=== PATIENT | female | born 1965 | race Caucasian/White ===

== ENCOUNTER 2024-05-07 17:56 | Inpatient (IN) | payer MEDICARE ==
[~2024-05-07] VITALS: Ht 162.6 cm; Wt 52.2 kg
[2024-05-07 18:41] LABS: BASOPHILS % 0.2 % (0.0-1.0); EOSINOPHILS % 0.3 % (0.0-6.0); HEMATOCRIT 40.1 % (34.2-44.1); HEMOGLOBIN 12.3 g/dL (12.0-16.0); LYMPHOCYTES # (AUTO) 0.8 (1.0-3.2); LYMPHOCYTES % 7.1 % (18.0-39.1); MEAN CORPUSCULAR HGB CONC 30.7 g/dL (31-35); MEAN CORPUSCULAR VOLUME 91.3 fL (81-99); MONOCYTES # (AUTO) 0.3 (0.2-0.8); MONOCYTES % 2.8 % (4.4-11.3); NEUTROPHILS # (AUTO) 9.7 (2.1-6.9); NEUTROPHILS % 89.2 % (38.7-80.0); PLATELET COUNT 279 x10e3/uL (140-360); RED BLOOD COUNT 4.39 x10e6/uL (3.6-5.1); RED CELL DISTRIBUTION WIDTH 13.2 % (11.7-14.4); WHITE BLOOD COUNT 10.91 x10e3/uL (4.8-10.8)
[2024-05-07 19:01] LABS: ALBUMIN 3.6 g/dL (3.5-5.0); ALBUMIN/GLOBULIN RATIO 0.9 (0.8-2.0); ANION GAP 18.3 mmol/L (8-16); BILIRUBIN,TOTAL 0.6 mg/dL (0.2-1.2); CALCIUM 9.7 mg/dL (8.4-10.2); CREATININE, SERUM 0.99 mg/dL (0.57-1.11); POTASSIUM 4.3 mmol/L (3.5-5.1); TOTAL PROTEIN 7.5 g/dL (6.5-8.1)
[2024-05-07 19:02] LABS: INFLUENZAE A&B ANTIGEN (RAPID) NEGATIVE (NEGATIVE); RESPIRATORY SYNC. VIRUS NEGATIVE (NEGATIVE)
[2024-05-07 19:08] LABS: BILIRUBIN,URINE NEGATIVE (NEGATIVE); CLARITY,URINE CLOUDY (CLEAR); COLOR,URINE YELLOW (YELLOW); GLUCOSE, URINE NEGATIVE (NEGATIVE); KETONES,URINE NEGATIVE (NEGATIVE); LEUKOCYTE ESTERASE ,URINE LARGE (NEGATIVE); NITRITE,URINE NEGATIVE (NEGATIVE); PH,URINE 7.5 (5 - 7); PROTEIN,URINE DIPSTICK 1+ (NEGATIVE); URINE UROBILINOGEN 0.2 mg/dL (0.2 - 1)
[2024-05-07] MEDS: SODIUM CHLORIDE 0.9% 1000ML 1,000 ML IV ONE ×2 (19:13→20:36)
[2024-05-07] MEDS: ACETAMINOPHEN 1000 MG/100 ML IV STA (19:13)
[2024-05-07] MEDS ORDERED: IOPAMIDOL 370 MG/ML 100 ML INFUS..BTL INJ ONE (19:15)
[2024-05-07 19:19] LABS: BACTERIA,URINE MANY /HPF; RBC,URINE 0-5 /HPF (0-5)
[2024-05-07] MEDS ORDERED: ONDANSETRON HCL INJ 2MG/ML 2ML 2 MG/ML VIAL IV PRN (21:00)
[2024-05-07 21:10] VITALS: PULSE 133; RESP 25; O2SAT 95
[2024-05-07] MEDS ORDERED: MELATONIN 5 MG TABLET PO PRN (21:45)
[2024-05-07] MEDS ORDERED: ACETAMINOPHEN 325 MG TAB PO PRN (21:45)
[2024-05-07] MEDS ORDERED: ONDANSETRON HCL 4 MG ORAL DISINTEGRATING TAB PO PRN (21:45)
[2024-05-07 22:30] VITALS: TEMP 99.8
[2024-05-07] MEDS: MUPIROCIN 2% OINT 22 GM TUBE TOP SCH (23:28)
[2024-05-07] MEDS: SODIUM CHLORIDE 0.9% 1000ML 1,000 ML IV SCH (23:29)
[2024-05-08] VITALS (21 sets, daily range): BP systolic 67–112; BP diastolic 45–77; PULSE 90–114; RESP 17–28; TEMP 98.3–99; O2SAT 90–98
[2024-05-08] MEDS ORDERED: BACLOFEN10 MG PO (07:28)
[2024-05-08] MEDS ORDERED: OMEPRAZOLE40 MG PO (07:28)
[2024-05-08] MEDS ORDERED: METHENAMINE HIPP1 GM PO (07:28)
[2024-05-08] MEDS ORDERED: GLYCOPYRROLATE2 MG PO (07:28)
[2024-05-08] MEDS: FAMOTIDINE 20 MG TAB PO SCH (08:07)
[2024-05-08 08:19] LABS: BASOPHILS % 0.3 % (0.0-1.0); EOSINOPHILS # (AUTO) 0.1 (0.0-0.4); EOSINOPHILS % 0.5 % (0.0-6.0); HEMATOCRIT 33.1 % (34.2-44.1); HEMOGLOBIN 10.2 g/dL (12.0-16.0); LYMPHOCYTES # (AUTO) 1.8 (1.0-3.2); LYMPHOCYTES % 19.1 % (18.0-39.1); MEAN CORPUSCULAR HEMOGLOBIN 28.2 pg (28-32); MEAN CORPUSCULAR HGB CONC 30.8 g/dL (31-35); MEAN CORPUSCULAR VOLUME 91.4 fL (81-99); MONOCYTES # (AUTO) 0.5 (0.2-0.8); MONOCYTES % 5.5 % (4.4-11.3); NEUTROPHILS % 74.3 % (38.7-80.0); PLATELET COUNT 262 x10e3/uL (140-360); RED BLOOD COUNT 3.62 x10e6/uL (3.6-5.1); RED CELL DISTRIBUTION WIDTH 13.4 % (11.7-14.4)
[2024-05-08 08:44] LABS: ALBUMIN 2.7 g/dL (3.5-5.0); ALBUMIN/GLOBULIN RATIO 0.9 (0.8-2.0); ANION GAP 12.5 mmol/L (8-16); BILIRUBIN,TOTAL 0.5 mg/dL (0.2-1.2); CALCIUM 8.3 mg/dL (8.4-10.2); CREATININE, SERUM 0.85 mg/dL (0.57-1.11); POTASSIUM 3.5 mmol/L (3.5-5.1); TOTAL PROTEIN 5.7 g/dL (6.5-8.1)
[2024-05-08] MEDS: POLYETHYLENE GLYCOL 3350 17 GM PACK PO SCH (10:11)
[2024-05-08] MEDS: DEXTROSE 5%/0.45% SOD CHL 1,000 ML IV SCH (10:11)
[2024-05-08] MEDS: BENZONATATE 100 MG CAP PO PRN (17:23)
[2024-05-08] MEDS: ACETAMINOPHEN 1000 MG/100 ML IV PRN (19:40)
[2024-05-08] MEDS: GUAIFENESIN/DEXTROMETHORPHAN LIQD 5 ML UDC PO PRN (22:57)
[2024-05-09] VITALS (15 sets, daily range): BP systolic 85–119; BP diastolic 50–86; PULSE 63–106; RESP 18–26; TEMP 97.9–99.7; O2SAT 95–100
[2024-05-09 05:53] LABS: BASOPHILS % 0.3 % (0.0-1.0); EOSINOPHILS # (AUTO) 0.2 (0.0-0.4); EOSINOPHILS % 2.7 % (0.0-6.0); HEMATOCRIT 28.3 % (34.2-44.1); HEMOGLOBIN 8.2 g/dL (12.0-16.0); LYMPHOCYTES # (AUTO) 1.8 (1.0-3.2); LYMPHOCYTES % 27.6 % (18.0-39.1); MEAN CORPUSCULAR HEMOGLOBIN 28.1 pg (28-32); MEAN CORPUSCULAR VOLUME 96.9 fL (81-99); MONOCYTES # (AUTO) 0.6 (0.2-0.8); MONOCYTES % 9.4 % (4.4-11.3); NEUTROPHILS # (AUTO) 3.9 (2.1-6.9); NEUTROPHILS % 59.7 % (38.7-80.0); PLATELET COUNT 204 x10e3/uL (140-360); RED BLOOD COUNT 2.92 x10e6/uL (3.6-5.1)
[2024-05-09] MEDS: GLYCOPYRROLATE 1 MG TAB PO SCH (08:01)
[2024-05-09] MEDS ORDERED: PHENYLEPH/SHARK OIL/MO/PETROL 30 GM OINT RC PRN (12:30)
[2024-05-09 15:45] LABS: ALBUMIN 2.8 g/dL (3.5-5.0); ALBUMIN/GLOBULIN RATIO 0.9 (0.8-2.0); ANION GAP 12.5 mmol/L (8-16); BILIRUBIN,TOTAL 0.2 mg/dL (0.2-1.2); CALCIUM 8.6 mg/dL (8.4-10.2); CREATININE, SERUM 0.81 mg/dL (0.57-1.11); POTASSIUM 3.5 mmol/L (3.5-5.1)
[2024-05-09] MEDS: DEXTROSE 5% 1,000 ML IV ONE (17:18)
[2024-05-10] VITALS: BP 130/77; PULSE 88; RESP 18; TEMP 98.2; O2SAT 100
[2024-05-10 04:00] VITALS: BP 144/90; PULSE 73; RESP 17; TEMP 97.8; O2SAT 98
[2024-05-10 05:03] LABS: BASOPHILS % 0.2 % (0.0-1.0); EOSINOPHILS # (AUTO) 0.3 (0.0-0.4); EOSINOPHILS % 3.7 % (0.0-6.0); HEMATOCRIT 34.2 % (34.2-44.1); HEMOGLOBIN 10.4 g/dL (12.0-16.0); LYMPHOCYTES # (AUTO) 2.6 (1.0-3.2); LYMPHOCYTES % 30.4 % (18.0-39.1); MEAN CORPUSCULAR HGB CONC 30.4 g/dL (31-35); MONOCYTES # (AUTO) 0.6 (0.2-0.8); MONOCYTES % 7.4 % (4.4-11.3); PLATELET COUNT 294 x10e3/uL (140-360); RED BLOOD COUNT 3.71 x10e6/uL (3.6-5.1); RED CELL DISTRIBUTION WIDTH 13.4 % (11.7-14.4); WHITE BLOOD COUNT 8.65 x10e3/uL (4.8-10.8)
[2024-05-10 05:07] LABS: MEAN CORPUSCULAR VOLUME 92.2 fL (81-99)
[2024-05-10 05:32] LABS: ALBUMIN 2.8 g/dL (3.5-5.0); ALBUMIN/GLOBULIN RATIO 0.9 (0.8-2.0); ANION GAP 13.3 mmol/L (8-16); BILIRUBIN,TOTAL 0.4 mg/dL (0.2-1.2); CALCIUM 9.1 mg/dL (8.4-10.2); CREATININE, SERUM 0.82 mg/dL (0.57-1.11)
[2024-05-10 05:33] LABS: POTASSIUM 3.3 mmol/L (3.5-5.1)
[2024-05-10 05:52] LABS: FERRITIN 61.58 ng/mL (4.63-204.00)
[2024-05-10 06:05] LABS: FOLATE 6.9 ng/mL (7.0-15.4)
[2024-05-10 07:12] VITALS: PULSE 80; RESP 16; O2SAT 97
[2024-05-10 08:06] VITALS: BP 113/76; PULSE 81; RESP 17; TEMP 99; O2SAT 97
[2024-05-10 08:35] VITALS: BP 113/76; PULSE 81; RESP 17; TEMP 99; O2SAT 97
[2024-05-10] MEDS: POTASSIUM CHLORIDE 20 MEQ TAB CR PO ONE (08:54)
[2024-05-10] MEDS ORDERED: FEROSUL325 MG PO (08:58)
[2024-05-10] MEDS ORDERED: FOLIC ACID0.4 MG PO (08:58)
[2024-05-10] MEDS ORDERED: PROTONIX20 MG PO (08:58)
[2024-05-10] MEDS ORDERED: GUAIFENESIN-DM 15 ML PO (08:58)
== END 2024-05-10 11:05 | disposition home or self-care (01) | DRG 871 ==
LOC: ER 18:16 → ERHOLD 20:51 → ICU 05-08 02:22 → MED/SURG2 05-09 09:13
PROVIDERS: ADMIT Family Medicine Adult Medicine; ATTEND Family Medicine Adult Medicine
PROC: 3E0333Z Introduction of Anti-inflammatory into Peripheral Vein, Percutaneous Approach (ICD-10-PCS; principal; 2024-05-08)
DX: A41.51 Sepsis due to Escherichia coli [E. coli] (principal); J18.9 Pneumonia, unspecified organism; E87.20 Acidosis, unspecified; E87.0 Hyperosmolality and hypernatremia; Z16.24 Resistance to multiple antibiotics; R65.20 Severe sepsis without septic shock; K21.00 Gastro-esophageal reflux disease with esophagitis, without bleeding; D64.9 Anemia, unspecified; N20.0 Calculus of kidney; N30.90 Cystitis, unspecified without hematuria; Z11.52 Encounter for screening for COVID-19; K76.0 Fatty (change of) liver, not elsewhere classified; K52.9 Noninfective gastroenteritis and colitis, unspecified; K59.09 Other constipation; G80.9 Cerebral palsy, unspecified; R74.8 Abnormal levels of other serum enzymes; Z99.3 Dependence on wheelchair; Z87.440 Personal history of urinary (tract) infections
CPT/HCPCS: 36415; 71045; 74177; 80053; 81001; 82607; 82728; 82746; 83540; 83605; 83630; 83690; 83993; 84466; 85025; 85045; 87040; 87045; 87086; 87186; 87400; 87420; 93005; 94799; 99284; J2470; J2543; J7030; J7050; J7070; Q9967; U0002

== ENCOUNTER 2024-08-03 19:09 | Emergency (ER) | payer MEDICARE ==
[~2024-08-03] VITALS: Ht 162.6 cm; Wt 52.2 kg
[~2024-08-03 19:09] MED LIST: BACLOFEN10 MG PO; FEROSUL325 MG PO; FOLIC ACID0.4 MG PO; GLYCOPYRROLATE2 MG PO; GUAIFENESIN-DM 15 ML PO; METHENAMINE HIPP1 GM PO; OMEPRAZOLE40 MG PO; PROTONIX20 MG PO
[2024-08-03 19:38] VITALS: TEMP 98.5
[2024-08-03 20:10] LABS: BASOPHILS % 0.1 % (0.0-1.0); HEMATOCRIT 43.5 % (34.2-44.1); HEMOGLOBIN 13.3 g/dL (12.0-16.0); MEAN CORPUSCULAR HEMOGLOBIN 29.3 pg (28-32); MEAN CORPUSCULAR HGB CONC 30.6 g/dL (31-35); MEAN CORPUSCULAR VOLUME 95.8 fL (81-99); MONOCYTES # (AUTO) 1.2 (0.2-0.8); MONOCYTES % 9.8 % (4.4-11.3); NEUTROPHILS # (AUTO) 9.9 (2.1-6.9); NEUTROPHILS % 81.8 % (38.7-80.0); PLATELET COUNT 213 x10e3/uL (140-360); RED BLOOD COUNT 4.54 x10e6/uL (3.6-5.1); RED CELL DISTRIBUTION WIDTH 14.2 % (11.7-14.4)
[2024-08-03 20:27] LABS: ALBUMIN 3.1 g/dL (3.5-5.0); ALBUMIN/GLOBULIN RATIO 0.8 (0.8-2.0); ANION GAP 17.4 mmol/L (8-16); BILIRUBIN,TOTAL 0.3 mg/dL (0.2-1.2); CALCIUM 9.4 mg/dL (8.4-10.2); CREATININE, SERUM 0.92 mg/dL (0.57-1.11)
[2024-08-03] MEDS: SODIUM CHLORIDE 0.9% 1000ML 1,000 ML IV STA (20:27)
[2024-08-03] MEDS: ONDANSETRON HCL INJ 2MG/ML 2ML 2 MG/ML VIAL IV STA (20:27)
[2024-08-03 20:28] LABS: POTASSIUM 3.4 mmol/L (3.5-5.1)
[2024-08-03 20:29] LABS: CLARITY,URINE CLOUDY (CLEAR); COLOR,URINE YELLOW (YELLOW)
[2024-08-03 20:30] LABS: BILIRUBIN,URINE NEGATIVE (NEGATIVE); GLUCOSE, URINE NEGATIVE (NEGATIVE); KETONES,URINE TRACE (NEGATIVE); LEUKOCYTE ESTERASE ,URINE LARGE (NEGATIVE); NITRITE,URINE NEGATIVE (NEGATIVE); PH,URINE 6 (5 - 7); PROTEIN,URINE DIPSTICK 2+ (NEGATIVE); URINE UROBILINOGEN 0.2 mg/dL (0.2 - 1)
[2024-08-03 20:33] LABS: TROPONIN I 0.005 ng/mL (0-0.300)
[2024-08-03 20:40] LABS: BACTERIA,URINE MODERATE /HPF; EPITHELIAL CELLS,URINE FEW /LPF; RENAL EPITHELIAL CELLS,URINE FEW; TRANSITIONAL EPI CELLS,URINE MODERATE
[2024-08-03] MEDS ORDERED: ONDANSETRON ODT4 MG PO (22:44)
[2024-08-03] MEDS ORDERED: AUGMENTIN250 MG/5 M PO (22:44)
[2024-08-03 22:55] VITALS: PULSE 88; RESP 20
[2024-08-03 22:56] VITALS: BP 90/68; O2SAT 97
== END 2024-08-03 22:59 | disposition home or self-care (01) ==
LOC: ER 19:37
DX: R11.2 Nausea with vomiting, unspecified (principal); N20.0 Calculus of kidney; R10.13 Epigastric pain; G80.9 Cerebral palsy, unspecified; R94.31 Abnormal electrocardiogram [ECG] [EKG]
CPT/HCPCS: 36415; 74177; 80053; 81001; 82550; 83690; 84484; 85025; 93005; 99284; J2405; J7030

== ENCOUNTER 2025-02-15 12:15 | Emergency (ER) | payer MEDICARE ==
[~2025-02-15] VITALS: Ht 162.6 cm; Wt 52.2 kg
[~2025-02-15 12:15] MED LIST changes: +AUGMENTIN250 MG/5 M PO; +ONDANSETRON ODT4 MG PO
[2025-02-15 14:19] VITALS: PULSE 105; RESP 16; TEMP 98.8
[2025-02-15 14:48] LABS: BASOPHILS % 0.3 % (0.0-1.0); EOSINOPHILS % 2.1 % (0.0-6.0); LYMPHOCYTES % 22.8 % (18.0-39.1); MONOCYTES % 15.5 % (4.4-11.3); NEUTROPHILS % 59.0 % (38.7-80.0); RED CELL DISTRIBUTION WIDTH 14.3 % (11.7-14.4)
[2025-02-15 15:01] LABS: INR 0.95
[2025-02-15 15:09] LABS: EST GLOMERULAR FILTRATION RATE 89.0 ML/MIN (>=60)
[2025-02-15] MEDS ORDERED: IOPAMIDOL 370 MG/ML 100 ML INFUS..BTL INJ ONE (15:15)
[2025-02-15] MEDS: SODIUM CHLORIDE 0.9% 1000ML 1,000 ML IV STA (15:21)
[2025-02-15 15:26] LABS: LEUKOCYTE ESTERASE ,URINE TRACE (NEGATIVE); PROTEIN,URINE DIPSTICK 1+ (NEGATIVE); URINE UROBILINOGEN 0.2 mg/dL (0.2 - 1)
[2025-02-15 15:38] LABS: WBC,URINE (MAN) 0-5 /HPF (0-5)
[2025-02-15] MEDS ORDERED: CEFDINIR300 MG PO (17:48)
[2025-02-15 19:28] VITALS: BP 117/70; PULSE 60; RESP 17; TEMP 98.4; O2SAT 100
== END 2025-02-15 17:57 | disposition home or self-care (01) ==
LOC: ER 14:25
DX: R53.1 Weakness (principal); N20.0 Calculus of kidney; N39.0 Urinary tract infection, site not specified; N28.1 Cyst of kidney, acquired; G80.9 Cerebral palsy, unspecified
CPT/HCPCS: 36415; 71045; 72132; 74177; 80053; 81001; 83690; 83735; 85025; 85610; 85730; 87086; 99284; Q9967

== ENCOUNTER 2025-02-17 14:54 | Emergency (ER) | payer MEDICARE ==
[~2025-02-17 14:54] MED LIST changes: +CEFDINIR300 MG PO
[2025-02-17 15:20] VITALS: PULSE 99; RESP 18; TEMP 98.9; O2SAT 98
[2025-02-17] MEDS ORDERED: PAXLOVID 300-11 EAC1 PO (18:03)
[2025-02-17] MEDS ORDERED: LASIX20 MG PO (18:03)
== END 2025-02-17 18:18 | disposition home or self-care (01) ==
LOC: FSED 15:11
DX: R60.9 Edema, unspecified (principal); U07.1 COVID-19; G80.9 Cerebral palsy, unspecified; Z87.442 Personal history of urinary calculi
CPT/HCPCS: 0223U; 80048; 83880; 87400; 93970; 99284